=== PATIENT | female | born 1995 | race Caucasian/White ===

== ENCOUNTER 2017-09-25 18:34 | Emergency (ER) | payer MEDICAID ==
[~2017-09-25] VITALS: Ht 162.6 cm; Wt 70.4 kg
[~2017-09-25 18:34] MED LIST: PRENATAL VITAMIN
[2017-09-25 18:50] VITALS: BP 118/72
[2017-09-25] MEDS ORDERED: DEXAMETHASONE 4 MG/ML, 1ML PO ONE (19:00)
[2017-09-25] MEDS ORDERED: DEXAMETHASONE 4 MG/ML, 5ML ONE (19:15)
== END 2017-09-25 19:29 | disposition home or self-care (01) ==
LOC: ED 19:20
DX: J02.0 Streptococcal pharyngitis (principal)
CPT/HCPCS: 99283; J1100

== ENCOUNTER 2018-08-26 16:37 | Emergency (ER) | payer MEDICAID, OTHER ==
[~2018-08-26] VITALS: Ht 162.6 cm; Wt 62.9 kg
[2018-08-26 16:53] VITALS: BP 129/78
[2018-08-26] MEDS ORDERED: LIDOCAINE-MPF 1%, 5ML INFIL ONE (17:00)
[2018-08-26] MEDS ORDERED: LIDOCAINE-MPF 2%, 2ML ONE (17:07)
== END 2018-08-26 18:27 | disposition home or self-care (01) ==
LOC: ED 18:15
DX: S91.115A Laceration without foreign body of left lesser toe(s) without damage to nail, initial encounter (principal); W23.1XXA Caught, crushed, jammed, or pinched between stationary objects, initial encounter; Y93.89 Activity, other specified; Y99.8 Other external cause status; Y92.009 Unspecified place in unspecified non-institutional (private) residence as the place of occurrence of the external cause
CPT/HCPCS: 12011; 99283

== ENCOUNTER 2018-12-14 13:38 | Emergency (ER) | payer MEDICAID, OTHER ==
[~2018-12-14] VITALS: Ht 162.6 cm; Wt 64.0 kg
[2018-12-14 14:07] VITALS: BP 123/81
[2018-12-14] MEDS ORDERED: POLY17PO5 PO (14:21)
[2018-12-14] MEDS ORDERED: CARBAMIDE PEROXIDE EAR DROPS 6.5%, 15ML ONE (14:22)
[2018-12-14] MEDS ORDERED: CARBAMIDE PEROXIDE EAR DROPS 6.5%, 15ML RIGHT EAR ONE (14:30)
--- NOTE | 2018-12-14 16:16 | NUR ---
Patient/Caregiver given discharge instructions and they have confirmed that they understand the instructions. Patient ambulatory with steady gait.
== END 2018-12-14 16:18 | disposition home or self-care (01) ==
LOC: ED 16:00
DX: H61.21 Impacted cerumen, right ear (principal)
CPT/HCPCS: 69209; 99283